=== PATIENT | male | born 1955 | race Caucasian/White ===

== ENCOUNTER 2020-06-13 14:04 | Outpatient (CLI) | payer OTHER, SELFPAY ==
--- NOTE | ~2020-06-13 | XR_ITS ---
EXAMINATION: XR chest 2V DATE: 06/13/2020 14:30 INDICATION: Shortness of breath. COVID-19 positive on 05/26/2020. TECHNIQUE: Frontal and lateral views of the chest were obtained. COMPARISON: Chest 2 views 11/02/2013 FINDINGS: There are mild peripheral airspace opacities in right lung in all lung zones. No pleural ef fusion or pneumothorax. The heart size is normal. IMPRESSION: 1. Mild peripheral airspace opacities in right lung, consistent with COVID-19 pneumonia. Reviewed, dictated and finalized at location A. IMPRESSION: 1. Mild peripheral airspace opacities in right lung, consistent with COVID-19 p [place]um[place].
--- NOTE | 2020-06-13 14:30 | ECG_ITS ---
Measurements Intervals [place] Rate: 65 P: 54 [place]: 184 QRS: 61 QRSD: 121 T: 65 QT: 373 QTc: 389 Interpretive Statements SINUS RHYTHM INTRAVENTRICULAR CONDUCTION DELAY BASELINE ARTIFACT- I, III, AVL, AVF BORDERLINE ECG Electronically Signed On 06-13-2020 14:48:53 CDT by Lan Martinez D.O.
== END 2020-06-13 14:05 | disposition home or self-care (01) ==
LOC: CHSIMG 14:07
PROVIDERS: PCP Internal Medicine; Visit Provider Internal Medicine
DX: R06.00 Dyspnea, unspecified (principal)
CPT/HCPCS: 71046; 93005

== ENCOUNTER 2020-07-09 14:18 | Outpatient (CLI) | payer OTHER, SELFPAY ==
--- NOTE | 2020-07-09 14:24 | ECHO_ITS ---
Patient Info Name: Eric Haq Age: 64 years : 1955 Gender: Male Ht: 71 in Wt: 214 lbs BSA: 2.23 m2 HR: 74 bpm BP: 167 / 88 mmHg Heart Rhythm: Sinus Rhythm Technical Quality: Poor Exam Date: 07/09/2020 2:11 PM Exam Location: [facility] Patient Status: Outpatient Admit Date: 07/09/2020 Staff Ordering Physician: Lan Martinez DO Chief Wharfinger: Tamia Hoffman RDCS Attending Provider: Lan Martinez DO Referring Physician: Juan APARICIO; Exam Type: CA echo dop color flow w con Study Info Indications R06.00 - Dyspnea, unspecified Complete two-dimensional, color flow and Doppler transthoracic echocardiogram is performed with contrast to opacify the left ventricle and to improve the deliniation of the left ventricle endocardial borders. Strain analysis performed. Contrast/Agitated Saline Contrast/Ag. Saline: Definity Amount: 5.00 ml New IV Access: Antecubital Space and Left Site Condition: No extravasation, Site dressing applied and IV removed Reason for Poor Study: poor echocardiographic windows History/Risk Factors Hypertension: Yes Dyslipidemia: No Congenital Heart Disease (CHD): No Peripheral Arterial Disease (PAD): No Myocardial Infarction (RI): No Chronic Lung Disease: No Obesity: Yes Renal Disease: No Coronary Artery Disease (CAD) No Congestive Heart Failure (CHF): No Cardiomyopathy/LV Systolic Dysfunction: No Diabetes Mellitus: No COPD: No Tobacco Use: Never Cerebrovascular Disease: No Family History: Coronary Artery Disease Deep Vein Thrombosis (DVT): None Dialysis: None Frailty Scale (CSHA): 3: Managing Well Cardiac Arrest: No Summary 1. Technically suboptimal study due to poor sonographic images. 2. Left ventricular chamber dimension is normal. 3. Definity contrast administered improved wall motion interpretation. 4. Left ventricular systolic function is normal, estimated at 65-70%. 5. There is moderately increased left ventricular wall thickness. 6. The left ventricular diastolic function is grade I diastolic dysfunction. 7. E/e' 12 is mildly elevated. 8. Global longitudinal strain is abnormal at -13.5%. Left Ventricle Definity contrast administered improved wall motion interpretation. E/e' 12 is mildly elevated. Global longitudinal strain is abnormal at -13.5%. Technically suboptimal study due to poor sonographic images. Left ventricular chamber dimension is normal. Left ventricular systolic function is normal, estimated at 65-70%. There is moderately increased left ventricular wall thickness. The left ventricular diastolic function is grade I diastolic dysfunction. Right Ventricle Right ventricular chamber dimension is normal. Right ventricular systolic function is normal. Left Atria Left atrial chamber dimension is normal. Right Atria Right atrial chamber dimension is normal. Aortic Valve The aortic valve is trileaflet. There is no aortic valve stenosis. There is no aortic valve regurgitation. Pulmonic Valve There is no pulmonic regurgitation. Mitral Valve There is no mitral valve stenosis. There is no mitral valve regurgitation. Tricuspid Valve There is no tricuspid valve regurgitation. Pericardium/Pleural There is no pericardial effusion. Inferior Vena Cava Normal inferior vena cava with >50% collapse upon inspiration consistent with normal right atri
== END 2020-07-09 14:19 | disposition home or self-care (01) ==
LOC: CHSIMG 14:20
PROVIDERS: PCP Internal Medicine; Visit Provider Internal Medicine Cardiovascular Disease
DX: R06.00 Dyspnea, unspecified (principal)
CPT/HCPCS: C8929

== ENCOUNTER 2020-07-14 13:04 | Outpatient (CLI) | payer OTHER, SELFPAY ==
--- NOTE | 2020-07-14 13:05 | EST_ITS ---
Patient Info Name: Eric Haq Age: 64 years : 1955 Gender: Male Ht: 71 in Wt: 220 lbs BSA: 2.26 m2 Exam Date: 07/14/2020 1:17 PM Exam Location: [facility] Patient Status: Outpatient Admit Date: 07/14/2020 Staff Ordering Physician: Lan Martinez DO Attending Provider: Lan Martinez DO Exam Type: CA stress test treadmill History/Risk Factors Hypertension: Yes Dyslipidemia: No Congenital Heart Disease (CHD): No Peripheral Arterial Disease (PAD): No Myocardial Infarction (OR): No Chronic Lung Disease: No Obesity: Yes Renal Disease: No Coronary Artery Disease (CAD) No Congestive Heart Failure (CHF): No Cardiomyopathy/LV Systolic Dysfunction: No Diabetes Mellitus: No COPD: No Tobacco Use: Never Cerebrovascular Disease: No Family History: Coronary Artery Disease Deep Vein Thrombosis (DVT): None Dialysis: None Frailty Scale (CSHA): 3: Managing Well Cardiac Arrest: No Summary 1. 1. Negative Balwinder exercise stress test for ischemic ST changes by ECG criteria. 2. 2. Good functional capacity, achieving 10 METs of workload. 3. 3. Baseline hypertension with hypertensive response to exercise. 4. 4. Appropriate HR response to exercise. 5. 5. Appropriate HR recovery at 1 minute post exercise. 6. 6. No imaging with stress testing. 7. 7. Patient informed of the above results. Protocol: Balwinder Stress ECG Details Stage: REST Duration (min): 0 min : 55 sec Speed (mph): 0.0 Grade (%): 0 HR (bpm): 81 SBP (mmHg): 157 DBP (mmHg): 91 METS: --- Stage: REST Duration (min): 8 min : 2 sec Speed (mph): 0.0 Grade (%): 0 HR (bpm): 89 SBP (mmHg): 157 DBP (mmHg): 91 METS: --- Stage: STAGE 1 Duration (min): 1 min : 0 sec Speed (mph): 1.7 Grade (%): 10 HR (bpm): 102 SBP (mmHg): 157 DBP (mmHg): 91 METS: --- Stage: STAGE 1 Duration (min): 2 min : 0 sec Speed (mph): 1.7 Grade (%): 10 HR (bpm): 107 SBP (mmHg): 157 DBP (mmHg): 91 METS: --- Stage: STAGE 1 Duration (min): 3 min : 0 sec Speed (mph): 1.7 Grade (%): 10 HR (bpm): 109 SBP (mmHg): 172 DBP (mmHg): 89 METS: --- Stage: STAGE 2 Duration (min): 1 min : 0 sec Speed (mph): 2.5 Grade (%): 12 HR (bpm): 116 SBP (mmHg): 172 DBP (mmHg): 89 METS: --- Stage: STAGE 2 Duration (min): 2 min : 0 sec Speed (mph): 2.5 Grade (%): 12 HR (bpm): 122 SBP (mmHg): 172 DBP (mmHg): 89 METS: --- Stage: STAGE 2 Duration (min): 3 min : 0 sec Speed (mph): 2.5 Grade (%): 12 HR (bpm): 124 SBP (mmHg): 207 DBP (mmHg): 94 METS: --- Stage: STAGE 3 Duration (min): 1 min : 0 sec Speed (mph): 3.4 Grade (%): 14 HR (bpm): 133 SBP (mmHg): 207 DBP (mmHg): 94 METS: --- Stage: STAGE 3 Duration (min): 2 min : 0 sec Speed (mph): 3.4 Grade (%): 14 HR (bpm): 139 SBP (mmHg): 207 DBP (mmHg): 94 METS: --- ---
== END 2020-07-14 13:05 | disposition home or self-care (01) ==
LOC: CHSCARD 13:05
PROVIDERS: PCP Internal Medicine; Visit Provider Internal Medicine Cardiovascular Disease
DX: R06.00 Dyspnea, unspecified (principal)
CPT/HCPCS: 93017

== ENCOUNTER 2021-02-26 10:17 | Outpatient (CLI) | payer OTHER, SELFPAY ==
[2021-02-26 11:15] LABS: Influenza A QL RT-PCR Negative (Negative); Influenza B QL RT-PCR Negative (Negative); SARS-CoV-2 RNA PCR Negative (Negative)
== END 2021-02-26 10:18 | disposition home or self-care (01) ==
LOC: CHSLAB 10:19
PROVIDERS: PCP Internal Medicine; Visit Provider Internal Medicine
DX: J06.9 Acute upper respiratory infection, unspecified (principal)
CPT/HCPCS: 87502; C9803; U0003; U0005

== ENCOUNTER 2022-06-11 08:48 | Outpatient (CLI) | payer OTHER, SELFPAY ==
--- NOTE | ~2022-06-11 | US_ITS ---
EXAMINATION: US right upper quadrant DATE: 06/11/2022 09:20 INDICATION: Elevated liver enzymes TECHNIQUE: Multiple grayscale and Doppler ultrasound images of the abdomen were obtained. COMPARISON: None available FINDINGS: Bowel gas obscures visualization of the pancreas. The liver demonstrates increased echogeni [place], heterogenous echotexture, and decreased through transmission. No surface nodularity. Normal hep atopetal flow in the main portal vein. The gallbladder is normal with no abnormal wall thickening, pe richolecystic fluid or stones. The normal common bile duct measures 3 mm. There was no sonographic Mu rphy sign. IMPRESSION: 1. Diffuse hepatic steatosis. Reviewed, dictated and finalized at location B.
== END 2022-06-11 08:49 | disposition home or self-care (01) ==
LOC: CHSIMG 08:49
PROVIDERS: PCP Internal Medicine; Visit Provider Internal Medicine
DX: R94.5 Abnormal results of liver function studies (principal); K76.0 Fatty (change of) liver, not elsewhere classified
CPT/HCPCS: 76705

== ENCOUNTER 2023-07-04 06:40 | Day surgery (SDC) | payer MEDICARE, OTHER, SELFPAY ==
[2023-06-07 15:24] VITALS: BMI 31.6
[2023-06-17 10:09] VITALS: BMI 29.9
--- NOTE | 2023-07-04 07:37 | P.PNAN_ITS ---
Anes - Initial Pre Proc Eval Procedure: Operation Date: 07/04/23 09:00 Proposed Procedures p Screening Colonoscopy - Dennis Gaytan DO Date/Time: 07/04/23 07:37 Surgeon: Dennis Gaytan DO Pre Op Diagnosis: Neoplasm Screening Patient Data Age: 67 Gender: M Height: 1.83 m Weight: 100 kg Allergies Allergy/AdvReac Type Severity Reaction Status Date / Time No Known Allergies Allergy Verified 07/04/23 08:22 Home Medications Medication Instructions Recorded Confirmed Type losartan 25 mg tablet 25 mg PO DAILY 06/01/19 07/04/23 History hydrochlorothiazide 25 mg tablet 25 mg PO DAILY 06/17/23 07/04/23 History Patient hx anesthesia problems: none Family hx anesthesia problems: none Results Review: All pre-operative results and documents have been reviewed as part of the pre- operative evaluation. [facility] Past Medical History Medical History Adenoma of sigmoid colon BPH (benign prostatic hyperplasia) RODRIGUEZ (dyspnea on exertion) History of kidney stones HTN (hypertension) Sleep apnea Surgical History Surgical History H/O colonoscopy 2013 H/O hernia repair 2013 Hx of cardiac cath 2007 Hx of tonsillectomy age 10 Family History Family History Mother Hypertension COPD (chronic obstructive pulmonary disease) Father Cerebrovascular accident Hypertension Dementia Sibling Cerebrovascular accident Other Diabetes mellitus Social History Social History Smoking status: Never smoker Alcohol intake: never Substance use: never Substance use type: does not use Living arrangements: with family 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 Informed Consent: The patient's anesthetic plan and its attendant risks and benefits were discussed with the patient/family/POA. Questions were solicited and answers provided to the satisfaction of the patient/family/POA.
[2023-07-04 07:49] VITALS: BP 139/85; PULSE 74; RESP 18; TEMP 37.1; O2SAT 98; BMI 28.8
[2023-07-04] MEDS: LACTATED RINGERS 1,000 ML 150 ML IV CONT (08:04)
--- NOTE | 2023-07-04 08:59 | PM.IMHP ---
H&P: HPI History of Present Illness Date/Time: 07/04/23 08:59 Chief Complaint: History of colon polyps Narrative: this is a 67-year-old man who presents for colonoscopy. His last colonoscopy was about 10 years ago. Have a polyp removed at that time. He denies any hematochezia or melena and denies any family history of colon cancer. Review of Systems Review of Systems: All systems reviewed & are unremarkable except as noted in HPI and below Constitutional: Constitutional: Denies chills, Denies fever(s), Denies headache(s) and Denies weight loss Eyes: Eyes: Denies change in vision ENT: Denies dizziness, Denies headache(s), Denies neck mass and Denies throat swelling Cardiovascular: Cardiovascular: Denies chest pain, Denies lightheadedness and Denies dyspnea Respiratory: Respiratory: Denies cough, Denies dyspnea and Denies wheezing Gastrointestinal: Gastrointestinal: Denies abdominal pain, Denies change in bowel habits, Denies nausea and Denies vomiting Genitourinary: Genitourinary: Denies hematuria and Denies dysuria Musculoskeletal: Musculoskeletal: Reports as per HPI Integumentary/Breasts: Skin/Breast: Reports as per HPI Neurologic: Denies dizziness and Denies headache(s) Allergic/Immunologic: Allergic/Immunologic: Denies throat swelling and Denies wheezing PMFSH Past Medical History Medical History Adenoma of sigmoid colon BPH (benign prostatic hyperplasia) RODRIGUEZ (dyspnea on exertion) History of kidney stones HTN (hypertension) Sleep apnea Surgical History Surgical History H/O colonoscopy 2013 H/O hernia repair 2013 Hx of cardiac cath 2007 Hx of tonsillectomy age 10 Family History Family History Mother Hypertension COPD (chronic obstructive pulmonary disease) Father Cerebrovascular accident Hypertension Dementia Sibling Cerebrovascular accident Other Diabetes mellitus Social History Social History Smoking status: Never smoker Alcohol intake: never Substance use: never Substance use type: does not use Living arrangements: with family 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 Gender identity (if verbalized by the patient): Male Spiritual care concerns: No Meds Home Medications and Allergies Home Medications Medication Instructions Recorded Confirmed Type losartan 25 mg tablet 25 mg PO DAILY 06/01/19 07/04/23 History hydrochlorothiazide 25 mg tablet 25 mg PO DAILY 06/17/23 07/04/23 History Allergies Allergy/AdvReac Type Severity Reaction Status Date / Time No Known Allergies Allergy Verified 07/04/23 08:22 Vital Signs Vital Signs - 24 hr 07/04/23 07:49 Temperature 37.1 C Pulse Rate 74 Respiratory Rate 18 Blood Pressure 139/85 Pulse Oximetry 98 Oxygen Delivery Room Air Exam Const: General: no acute distress and alert Orientation/consciousness: patient oriented x3 HENMT: Head: normocephalic and atraumatic Ears: hearing grossly normal bilaterally Face/Nose/Sinus: Normal nares present Mouth: Yes Normal oral and palatal mucosa present Eyes: Periorbital: periorbital findings normal Sclera: sclerae normal EOM: EOMs intact bilaterally Neck: Neck: normal visual inspection, no lymphadenopathy and trachea midline Chest: Chest palpation & inspection: normal inspection of the chest Resp: Effort & Inspection: normal respiratory effort Auscultation: clear to auscultation bilaterally Cardio: Jugular venous distension: no JVD Rate: regular rate Rhythm: regular rhythm Heart sounds: S1 normal heart sound present and S2 normal heart sound present Peripheral pulses: Peripheral pulses 2+ throughout GI: Inspection: normal to inspection GI Palp: Yes Soft to palpation, No Tenderness to palpation pr
[2023-07-04 09:54] VITALS: BP 124/76; PULSE 70; RESP 16; O2SAT 98
[2023-07-04 10:04] VITALS: BP 126/85; PULSE 55; RESP 16; O2SAT 100
[2023-07-04 10:14] VITALS: BP 125/82; PULSE 55; RESP 16; O2SAT 99
--- NOTE | 2023-07-04 10:36 | WPDANESPN ---
Anes - Prog Note Post-Op Date/Time: 07/04/23 10:36 Cardiovascular status: normal Respiratory status: normal Airway patency: baseline Mental status: baseline Post-Op hydration status: normal Vital Signs: Last Vital Signs Temp 37.1 C 07/04/23 07:49 Pulse 55 L 07/04/23 10:14 Resp 16 07/04/23 10:14 BP 125/82 07/04/23 10:14 Pulse Ox 99 07/04/23 10:14 O2 Del Method Room Air 07/04/23 10:14 Pain Score (VAS): 0 I/O: Intake & Output 07/03/23 07/04/23 07/04/23 23:59 07:59 15:59 Intake Total 500 Balance 500 Post-procedural complaints: none Patient Feedback: Patient satisfied with anesthetic care. Other Findings: Patient vital signs back to baseline. Patient denies nausea and vomiting. Patient's pain under control. Patient OK for discharge.
== END 2023-07-04 10:31 | disposition home or self-care (01) ==
PROVIDERS: PCP Internal Medicine; Visit Provider Surgery
PROC: 0DJD8ZZ Inspection of Lower Intestinal Tract, Via Natural or Artificial Opening Endoscopic (ICD-10-PCS; CPT 45378; principal; 2023-07-04 09:00)
DX: Z86.010 Personal history of colon polyps (principal); D12.5 Benign neoplasm of sigmoid colon; K57.30 Diverticulosis of large intestine without perforation or abscess without bleeding
CPT/HCPCS: 45385

== ENCOUNTER 2023-07-04 07:43 | Outpatient (NON) | payer MEDICARE, OTHER, SELFPAY | END 2023-07-04 07:44 | disposition home or self-care (01) | LOC: ANHLAB 07-05 07:45 | PROVIDERS: PCP Internal Medicine; Visit Provider Surgery | DX: Z86.010 Personal history of colon polyps (principal) | CPT/HCPCS: 88305 ==